=== PATIENT | female | born 1975 | race Caucasian/White ===

== ENCOUNTER 2018-12-20 17:32 | Emergency (ER) | payer MEDICAID ==
[~2018-12-20] VITALS: Ht 157.5 cm; Wt 86.7 kg
[2018-12-20 17:46] VITALS: BP 125/96
--- NOTE | 2018-12-20 17:52 | NUR ---
PT AMBULATED TO LOBBY AT THIS TIME W/ VSS. RR EVEN AT 16/MIN, NON-LABORED, BREATH SOUNDS CLEAR, AIRWAY PATENT, VOICE CLEAR.
--- NOTE | 2018-12-20 19:33 | NUR ---
PT AMBULATED TO ER BED 06
--- NOTE | 2018-12-20 19:44 | NUR ---
DR. GARAY EVALUATING AT BEDSIDE.
[2018-12-20] MEDS ORDERED: MECLIZINE 25 MG TAB PO ONE (19:55)
--- NOTE | 2018-12-20 19:55 | NUR ---
43 YO F BIB SELF PRESENTS TO ED C/O DIFFICULTY BREATHING X 2 DAYS. SPO2 98% ON RA. BREATHING EVEN, UNLABORED. NO SOB, INCREASED WOB NOTED. PT DENIES HX OF ASTHMA. LUNGS CTA. PT ALSO C/O DIZZINESS AND NAUSEA AND LOSS OF HEARING TO RIGHT EAR SINCE EAR IRRIGATION 3 DAYS AGO. -- PT AWAKE, ALERT, CALM, COOPERATIVE. ANSWERING QUESTIONS APPROPRIATELY. BEHAVIOR AGE APPROPRIATE. PMH-- DENIES RX-- BC IMPLANT TO LEFT ARM
--- NOTE | 2018-12-20 20:04 | NUR ---
PT TAKEN TO CT VIA WC.
--- NOTE | 2018-12-20 21:00 | NUR ---
XRAY AT BEDSIDE.
[2018-12-20 21:08] LABS: BASOPHILS # (AUTO) 0.1 K/uL (0.00-0.22); BASOPHILS % (AUTO) 1.3 % (0.0-2.0); EOSINOPHILS # (AUTO) 0.1 K/uL (0-0.4); EOSINOPHILS % (AUTO) 1.6 % (0.0-4.0); HEMATOCRIT 35.9 % (36-48); HEMOGLOBIN 11.4 g/dL (12.0-16.0); LYMPHOCYTES # (AUTO) 2.2 K/uL (2.5-16.5); LYMPHOCYTES % (AUTO) 30.2 % (20.5-51.1); MEAN CORPUSCULAR HEMOGLOBIN 25 pg (27-31); MEAN CORPUSCULAR HGB CONC 32 g/dL (33-37); MEAN CORPUSCULAR VOLUME 78.8 fL (80-94); MONOCYTES # (AUTO) 0.5 K/uL (0.8-1.0); MONOCYTES % (AUTO) 7.1 % (1.7-9.3); NEUTROPHILS # (AUTO) 4.3 K/uL (1.8-7.7); NEUTROPHILS % (AUTO) 59.8 % (42.2-75.2); PLATELET COUNT (AUTO) 273 K/uL (140-450); RED BLOOD CELL COUNT(AUTO) 4.55 MIL/uL (4.20-5.40); RED CELL DISTRIBUTION WIDTH 17.7 % (11.6-13.7); WHITE BLOOD COUNT (AUTO) 7.1 K/uL (4.8-10.8)
[2018-12-20 21:24] LABS: ALBUMIN 3.4 g/dL (3.4-5.0); ANION GAP 14.8 (8-16); CARBON DIOXIDE 23.7 mmol/L (21-32); CREATININE 0.7 mg/dL (0.6-1.3); POTASSIUM 3.5 mmol/L (3.5-5.1); TOTAL BILIRUBIN 0.4 mg/dL (0.0-1.0)
[2018-12-20] MEDS ORDERED: LACTULOSE 20 GM/30 ML UDC PO ONE (21:25)
--- NOTE | 2018-12-20 21:37 | NUR ---
REPORT GIVEN TO ALEXANDRA SEARS. TRANSFER CARE AT THIS TIME.
[2018-12-20 22:10] VITALS: BP 147/85
== END 2018-12-20 22:10 | disposition home or self-care (01) ==
LOC: MED 17:32
DX: R42 Dizziness and giddiness (principal); K59.00 Constipation, unspecified; R16.0 Hepatomegaly, not elsewhere classified
CPT/HCPCS: 36415; 71045; 74176; 80053; 81025; 83690; 85025; 99284; J8597; Q0092

== ENCOUNTER 2021-10-18 17:19 | Emergency (ER) | payer SELFPAY ==
[~2021-10-18] VITALS: Ht 162.6 cm; Wt 80.3 kg
[2021-10-18 17:26] VITALS: BP 145/79
--- NOTE | 2021-10-18 17:42 | NUR ---
46 Y/O FEMALE BIB SELF C/O VAGINAL BLEEDING [id number], 10 PADS A DAY, NOTED WITH LARGE CLOTS. 4/10 CRAMPING PAIN IN THE LOWER ABDOMEN. DENIES DIFFICULTY IN URINATION, NAUSEA OR VOMITING. PALE MUCOSA AND COOL EXTREMITIES. WALKS WITH STEADY GAIT. NKA PMH: DENIES
--- NOTE | 2021-10-18 18:08 | NUR ---
INFORMED DR JHA THAT THE ED IS OUT OF STOCK ON URINE PREG AND THE DIP DOES NOT READ. ORDERED FOR LAB TO PERFORM TESTS. URINE HANDED TO MARIANNA
[2021-10-18] MEDS ORDERED: IBUP-2213 PO (18:35)
[2021-10-18] MEDS ORDERED: MEDR10TA PO (18:35)
[2021-10-18 19:05] LABS: BILIRUBIN,URINE 1+ (NEGATIVE); BLOOD, URINE 3+ (NEGATIVE); LEUKOCYTE ESTERASE ,URINE TRACE (NEGATIVE); NITRITE, URINE POSITIVE (NEGATIVE); PH,URINE 6.5 (5.0-9.0); UGLUCOSE NEGATIVE (NEGATIVE)
[2021-10-18 19:13] LABS: APPEARANCE,URINE CLOUDY (CLEAR); COLOR,URINE RED (YELLOW)
--- NOTE | 2021-10-18 19:15 | NUR ---
REPORT RECIEVED FROM MALA MORRIS
--- NOTE | 2021-10-18 19:24 | NUR ---
Pt report given to NIK KENT. Transfer of care at this time.
--- NOTE | 2021-10-18 19:30 | NUR ---
PT IN BED RESTING NO DISTRESS NOTED. RESP EVEN AND UNLABORED. SIDE RAILS UP X1
--- NOTE | 2021-10-18 19:30 | NUR ---
RECIEVED REPORT FROM MALA
[2021-10-18] MEDS ORDERED: CIPR500T4 PO (19:37)
[2021-10-18 19:46] VITALS: BP 145/79
--- NOTE | 2021-10-18 19:46 | NUR ---
Patient discharged with v/s stable. Written and verbal after care instructions given and explained. Patient alert, oriented and verbalized understanding of instructions. Ambulatory with steady gait. All questions addressed prior to discharge. ID band removed. Patient advised to follow up with PMD. Rx of CIPRO IBUPROFEN PROVERA given. Patient educated on indication of medication including possible reaction and side effects. Opportunity to ask questions provided and answered.
--- NOTE | 2021-10-18 19:57 | NUR ---
The patient's care was reviewed and supervised by Amanda Jacobo RN.
== END 2021-10-18 19:46 | disposition home or self-care (01) ==
LOC: MED 17:19
DX: N93.9 Abnormal uterine and vaginal bleeding, unspecified (principal); N39.0 Urinary tract infection, site not specified; Z98.890 Other specified postprocedural states; Z79.899 Other long term (current) drug therapy; Z79.1 Long term (current) use of non-steroidal anti-inflammatories (NSAID)
CPT/HCPCS: 81001; 81025; 87086; 99283